=== PATIENT | male | born 1955 | race Caucasian/White ===

== ENCOUNTER 2019-11-15 17:28 | Emergency (ER) | payer MEDICARE ==
[~2019-11-15] VITALS: Ht 172.7 cm; Wt 90.9 kg
[2019-11-15] MEDS ORDERED: RA T500C2 PO (17:55)
[2019-11-15] MEDS ORDERED: PHEN32.44 PO (17:55)
[2019-11-15] MEDS ORDERED: CIDA500T2 PO (17:55)
[2019-11-15] MEDS ORDERED: FISH1000 PO (17:55)
[2019-11-15] MEDS ORDERED: CO Q100C10 PO (17:55)
[2019-11-15] MEDS ORDERED: KEFL500C17 PO (17:55)
[2019-11-15] MEDS ORDERED: PHEN50CH4 PO (17:55)
[2019-11-15] MEDS ORDERED: CETI10CH PO (17:55)
[2019-11-15] MEDS ORDERED: REDCAP4 PO (17:55)
[2019-11-15] MEDS ORDERED: NS 1,000 ML IV SCH (18:00)
[2019-11-15 18:16] LABS: VENOUS BASE EXCESS 0.5 (-2.0-2.0); VENOUS HCO3 24.1 MEQ/L (23.0-27.0); VENOUS O2 SATURATION 98.2 % (60.0-80.0); VENOUS PARTIAL PRESSURE CO2 35.5 mmHg (38.0-50.0); VENOUS PARTIAL PRESSURE O2 113.4 mmHg (30.0-50.0); VENOUS PH 7.449 UNITS (7.330-7.430); VENOUS STANDARD HCO3 24.9 MEQ/L; VENOUS TOTAL CO2 25.2 MEQ/L (24.0-28.0)
[2019-11-15 18:25] LABS: BASO # 0.1 10^3/uL (0.0-0.2); BASO % 0.5 % (0.0-1.0); EOS # 0.3 10^3/uL (0.0-0.5); HEMATOCRIT 38.5 % (42.0-52.0); HEMOGLOBIN 12.9 g/dl (13.5-17.5); LYMPH # 2.7 10^3/uL (1.5-5.0); LYMPH % 24.7 % (24.0-44.0); MEAN CORPUSCULAR HEMOGLOBIN 31.2 pg (27.0-33.0); MEAN CORPUSCULAR HGB CONC 33.5 g/dl (32.0-36.5); MONO # 1.4 10^3/uL (0.0-0.8); MONO % 13.1 % (0.0-5.0); NEUTROPHILS # 6.2 10^3/uL (1.5-8.5); NEUTROPHILS % 57.8 % (36.0-66.0); PLATELET COUNT, AUTOMATED 319 10^3/uL (150-450); RED BLOOD COUNT 4.14 10^6/uL (4.30-6.10); WHITE BLOOD COUNT 10.8 10^3/uL (4.0-10.0)
[2019-11-15 18:28] LABS: ALBUMIN 2.8 GM/DL (3.2-5.2); ALT/SGPT 41 U/L (12-78); BILIRUBIN,DIRECT < 0.1 MG/DL (0.0-0.2); BILIRUBIN,TOTAL 0.3 MG/DL (0.2-1.0); BLOOD UREA NITROGEN 15 MG/DL (7-18); CALCIUM LEVEL 8.4 MG/DL (8.8-10.2); CARBON DIOXIDE LEVEL 27 MEQ/L (21-32); CHLORIDE LEVEL 104 MEQ/L (98-107); CK-MB VALUE MASS 1.7 NG/ML (<3.6); CPK CREATINE PHOSPHOKINASE 115 U/L (39-308); CREATININE FOR GFR 0.76 MG/DL (0.70-1.30); GLOMERULAR FILTRATION RATE > 60.0 (>49); GLUCOSE, FASTING 100 MG/DL (70-100); LIPASE 103 U/L (73-393); MB/CK RELATIVE INDEX 1.48 (< OR =4); POTASSIUM SERUM 3.9 MEQ/L (3.5-5.1); SODIUM LEVEL 140 MEQ/L (136-145); TOTAL PROTEIN 6.5 GM/DL (6.4-8.2); TROPONIN I 1.88 NG/ML (< 0.10)
--- NOTE | 2019-11-15 18:45 | REP ---
Two-view chest: 11/15/2019. Vacation: Chest pain. Comparison: None. Findings: The lungs are clear. There is no pleural effusion or pneumothorax. The cardiac silhouette is borderline enlarged. Impression: No acute cardiopulmonary process. Electronically Signed by Lamin Nelson DO 11/15/2019 06:37 P
[2019-11-15] MEDS ORDERED: CLOPIDOGREL 300 MG TAB (PLAVIX) PO STA (18:52)
[2019-11-15] MEDS ORDERED: MORPHINE 2 MG/ML 1ML VIAL (J2270) IV ONE (19:00)
[2019-11-15 19:04] LABS: INR 0.89; PROTHROMBIN TIME 11.8 SECONDS (11.8-14.0)
[2019-11-15] MEDS ORDERED: HEPARIN SOD (PORCINE) 5000 UNITS/ML VIAL IV ONE (20:45)
[2019-11-15] MEDS ORDERED: HEPARIN DRIP 25,000 UNITS in IV 1 EA IV SCH (20:45)
[2019-11-15 21:29] LABS: PARTIAL THROMBOPLASTIN TIME 33.1 SECONDS (25.0-38.4)
[2019-11-15 21:58] VITALS: BP 116/73
--- NOTE | 2019-11-16 08:08 | ECGEPIP ---
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
== END 2019-11-15 22:00 | disposition short-term general hospital (02) ==
LOC: EDBD 17:28 → M ED 17:28
DX: I21.4 Non-ST elevation (NSTEMI) myocardial infarction (principal); I20.9 Angina pectoris, unspecified; I45.19 Other right bundle-branch block; Z79.899 Other long term (current) drug therapy; Z88.8 Allergy status to other drugs, medicaments and biological substances
CPT/HCPCS: 71046; 80048; 80076; 82550; 82553; 82803; 83690; 84484; 85025; 85610; 85730; 93005; 93041; 96374; 96375; 99285; J2270